=== PATIENT | male | born 1960 | race African-American/Black ===

== ENCOUNTER 2017-12-08 05:34 | Emergency (ER) | payer MEDICAID ==
[~2017-12-08] VITALS: Ht 185.4 cm; Wt 123.0 kg
[2017-12-08 06:42] VITALS: BP 145/85
== END 2017-12-08 06:43 | disposition home or self-care (01) ==
LOC: ER 05:34
DX: M54.9 Dorsalgia, unspecified (principal); J06.9 Acute upper respiratory infection, unspecified; M62.830 Muscle spasm of back
CPT/HCPCS: 99283

== ENCOUNTER 2017-12-29 04:55 | Emergency (ER) | payer MEDICAID ==
[~2017-12-29] VITALS: Ht 185.4 cm; Wt 120.0 kg
[2017-12-29] MEDS ORDERED: IBUPROFEN 600MG TABLET PO ONE (06:45)
[2017-12-29 06:55] VITALS: BP 144/98
== END 2017-12-29 07:09 | disposition home or self-care (01) ==
LOC: ER 04:55
DX: M54.89 Other dorsalgia (principal)
CPT/HCPCS: 99282

== ENCOUNTER 2019-04-19 09:18 | Emergency (ER) | payer MEDICAID, OTHER ==
[~2019-04-19] VITALS: Ht 185.4 cm; Wt 122.0 kg
[2019-04-19] MEDS ORDERED: SODIUM CHLORIDE 0.9% 1,000 ML IV ONE (10:23)
[2019-04-19] MEDS ORDERED: KETOROLAC 30MG/ML VIAL IV STA (10:23)
[2019-04-19 11:10] LABS: BASOPHILS % 0.4 % (0.0-2.0); EOSINOPHILS % 1.5 % (0.0-5.0); HEMATOCRIT. 44.4 % (42.0-52.0); HEMOGLOBIN. 14.8 g/dL (14.0-18.0); LYMPHOCYTES % 30.4 % (20.0-50.0); MEAN CORPUSCULAR HEMOGLOBIN 30.7 pg (28.0-32.0); MEAN CORPUSCULAR VOLUME 92.2 fL (80.0-94.0); MEAN PLATELET VOLUME 7.5 fl (7.4-10.4); MONOCYTES % 11.2 % (2.0-8.0); NEUTROPHILS % 56.5 % (40.0-76.0); PLATELET 215 x1000/uL (130-400); RED BLOOD CELL COUNT 4.81 mill/uL (4.7-6.1); RED CELL DISTRIBUTION WIDTH 13.4 % (11.6-14.6)
[2019-04-19 11:18] LABS: CHLORIDE 108 mEq/L (98-107)
[2019-04-19 11:37] LABS: CLARITY URINE CLEAR (CLEAR); COLOR URINE YELLOW (YELLOW); KETONES URINE NEGATIVE (NEGATIVE); LEUKOCYTE ESTERASE URINE NEGATIVE (NEGATIVE); NITRITE URINE NEGATIVE (NEGATIVE); OCCULT BLOOD URINE NEGATIVE (NEGATIVE); PROTEIN URINE NEGATIVE (NEGATIVE); SPECIFIC GRAVITY URINE 1.018 (1.005-1.030); UROBILINOGEN URINE 0.2 E.U./dL (0.2-1.0)
[2019-04-19 16:00] VITALS: BP 128/80
== END 2019-04-19 16:20 | disposition home or self-care (01) ==
LOC: ER 10:22
DX: R10.9 Unspecified abdominal pain (principal)
CPT/HCPCS: 36415; 71045; 74176; 80053; 81003; 84484; 85025; 93005; 96374; 99284; J1885; J7030

== ENCOUNTER 2021-09-03 19:58 | Emergency (ER) | payer MEDICAID, OTHER ==
[~2021-09-03] VITALS: Ht 185.4 cm; Wt 118.0 kg
[2021-09-03 20:31] VITALS: BP 168/104
[2021-09-03] MEDS ORDERED: KETOROLAC 15MG/ML VIAL IM ONE (22:00)
[2021-09-03] MEDS ORDERED: MED4 MT (22:02)
== END 2021-09-03 22:29 | disposition home or self-care (01) ==
LOC: ER 19:58
DX: M54.30 Sciatica, unspecified side (principal); V49.9XXA Car occupant (driver) (passenger) injured in unspecified traffic accident, initial encounter; Y93.89 Activity, other specified; Y92.410 Unspecified street and highway as the place of occurrence of the external cause
CPT/HCPCS: 96372; 99283; J1885

== ENCOUNTER 2023-05-14 00:50 | Emergency (ER) | payer MEDICAID, OTHER ==
[~2023-05-14] VITALS: Ht 185.4 cm; Wt 122.0 kg
[~2023-05-14 00:50] MED LIST: MED4 MT
[2023-05-14 01:14] VITALS: O2SAT 97
[2023-05-14] MEDS ORDERED: IBUPROFEN 600MG TABLET PO ONE (03:45)
[2023-05-14 03:50] VITALS: BP 136/77
[2023-05-14] MEDS ORDERED: IBUP-2029 MT (05:17)
[2023-05-14 06:26] VITALS: PULSE 89; RESP 19; TEMP 98.2
== END 2023-05-14 06:30 | disposition home or self-care (01) ==
LOC: ER 00:50
DX: M50.321 Other cervical disc degeneration at C4-C5 level (principal); M54.50 Low back pain, unspecified; M25.561 Pain in right knee; M25.551 Pain in right hip; V49.9XXA Car occupant (driver) (passenger) injured in unspecified traffic accident, initial encounter; Y93.89 Activity, other specified; Y92.89 Other specified places as the place of occurrence of the external cause; Y99.8 Other external cause status
CPT/HCPCS: 72040; 72100; 73523; 73562; 99284

== ENCOUNTER 2024-10-05 20:41 | Emergency (ER) | payer OTHER ==
[~2024-10-05] VITALS: Ht 185.4 cm; Wt 120.0 kg
[~2024-10-05 20:41] MED LIST changes: +IBUP-2029 MT; -MED4 MT; +METH4TAB95 MT
[2024-10-05 20:50] VITALS: BP 186/118; RESP 18; TEMP 37.1; O2SAT 99
[2024-10-05 20:53] VITALS: PULSE 108; O2SAT 99
[2024-10-05] MEDS: TETRACAINE 0.5% OPHTH DROPS 4ML LEFTEYE ONE (23:50)
[2024-10-05] MEDS: FLUORESCEIN SODIUM 1MG/STRIP LEFTEYE ONE (23:50)
[2024-10-06] MEDS ORDERED: CIPR2.5D20 LEFTEYE (00:06)
== END 2024-10-06 00:38 | disposition home or self-care (01) ==
LOC: ER 20:41
DX: S05.02XA Injury of conjunctiva and corneal abrasion without foreign body, left eye, initial encounter (principal); Z79.899 Other long term (current) drug therapy; W44.9XXA Unspecified foreign body entering into or through a natural orifice, initial encounter; Y93.89 Activity, other specified; Y92.89 Other specified places as the place of occurrence of the external cause; Y99.8 Other external cause status
CPT/HCPCS: 99283

== ENCOUNTER 2025-04-19 10:48 | Emergency (ER) | payer MEDICAID, OTHER ==
[~2025-04-19] VITALS: Ht 177.8 cm; Wt 82.0 kg
[~2025-04-19 10:48] MED LIST changes: +CIPR2.5D20 LEFTEYE; +IBUP-1455 MT; -IBUP-2029 MT
[2025-04-19 10:57] VITALS: O2SAT 100
[2025-04-19] MEDS ORDERED: NAPR-681 MT (13:56)
[2025-04-19] MEDS ORDERED: CAPS42.514 TP (13:56)
[2025-04-19] MEDS ORDERED: LIDO-53 TP (13:56)
[2025-04-19] MEDS: KETOROLAC 30MG/ML VIAL IM ONE (14:24)
[2025-04-19] MEDS: LIDOCAINE 5% PATCH TOP SCH (14:24)
[2025-04-19 14:25] VITALS: BP 148/68; PULSE 81; RESP 16; TEMP 36.6; O2SAT 100
== END 2025-04-19 14:26 | disposition home or self-care (01) ==
LOC: ER 10:48
DX: M54.2 Cervicalgia (principal); I10 Essential (primary) hypertension; Z79.899 Other long term (current) drug therapy
CPT/HCPCS: 99283; 96372; J1885